=== PATIENT | male | born 1950 | race Caucasian/White ===

== ENCOUNTER 2017-09-29 06:16 | Day surgery (SDC) | payer MEDICARE, BC ==
[2017-09-28 14:20] LABS: BASOPHILS % (AUTO) 0.2 % (0-1); EOSINOPHILS # (AUTO) 0.2 X10'3 (0-0.9); EOSINOPHILS % (AUTO) 1.6 % (0-6); HEMATOCRIT 44.9 % (42.0-52.0); HEMOGLOBIN 15.6 g/dl (14.0-17.9); LYMPHOCYTES # (AUTO) 0.9 X10'3 (1.1-4.8); LYMPHOCYTES % (AUTO) 9.2 % (21-51); MEAN CORPUSCULAR HEMOGLOBIN 31.4 PG (27.0-31.0); MEAN CORPUSCULAR HGB CONC 34.8 % (33.0-36.5); MEAN CORPUSCULAR VOLUME 90.3 FL (78-98); MEAN PLATELET VOLUME 8.6 FL (7.4-10.4); MONOCYTES # (AUTO) 0.1 X10'3 (0-0.9); MONOCYTES % (AUTO) 0.9 % (2-12); NEUTROPHILS # (AUTO) 8.5 X10'3 (1.8-7.7); NEUTROPHILS % (AUTO) 88.1 % (42-75); PLATELET COUNT 164 X10'3 (140-440); RED BLOOD COUNT 4.97 X10'6 (4.70-6.10); RED CELL DISTRIBUTION WIDTH 13.6 % (11.5-14.5); WHITE BLOOD COUNT 9.7 X10'3 (4.5-11.0)
[2017-09-28 14:32] LABS: PARTIAL THROMBOPLASTIN TIME 26 SECONDS (22-32); PROTHROMBIN TIME 10.5 SECONDS (9.0-12.0)
[2017-09-28 14:44] LABS: ALANINE AMINOTRANSFERASE 44 U/L (12-78); ALBUMIN 4.2 G/DL (3.4-5.0); ALBUMIN/GLOBULIN RATIO 1.1 (1.1-1.5); ALKALINE PHOSPHATASE 82 IU/L (46-116); ANION GAP 11 (8-16); ASPARTATE AMINO TRANSFERASE 27 U/L (10-37); BILIRUBIN,TOTAL 1.1 MG/DL (0.1-1.0); BLOOD UREA NITROGEN 19 MG/DL (7-18); BUN/CREATININE RATIO 17.8 (5.4-32.0); CALCIUM 9.3 MG/DL (8.5-10.1); CHLORIDE 103 MMOL/L (99-107); CREATININE 1.07 MG/DL (0.60-1.10); GLUCOSE 125 MG/DL (70-104); POTASSIUM 4.3 MMOL/L (3.5-5.1); SODIUM 140 MMOL/L (135-145); TOTAL CARBON DIOXIDE 26.2 MMOL/L (24-32); TOTAL PROTEIN 8.1 G/DL (6.4-8.2); eGFR 69 ML/MIN
[~2017-09-29] VITALS: Ht 175.3 cm; Wt 71.5 kg
[2017-09-29] VITALS (11 sets, daily range): BP systolic 103–134; BP diastolic 57–74
[2017-09-29] MEDS ORDERED: nitroGLYCERIN 0.4mg SUBLingual tab SL PRN (06:55)
[2017-09-29] MEDS ORDERED: normal saline 1000ml 1,000 ML IV SCH (07:05)
[2017-09-29] MEDS ORDERED: LORazepam 0.5 MG tablet PO PRN (07:05)
[2017-09-29] MEDS ORDERED: methylPREDNISolone sod succ 125mg/2ml vial IV ONE (07:05)
[2017-09-29] MEDS ORDERED: diphenhydrAMINE 25mg capsule PO PRN (07:05)
[2017-09-29] MEDS ORDERED: dextrose 50%-water 50ml dispensing syringe IV PRN ×2 (07:05)
[2017-09-29] MEDS ORDERED: insulin Lispro (HumaLOG) vial - multi-dose SQ SCH (07:05)
[2017-09-29] MEDS ORDERED: MESSAGE TO PHARMACY PO ONE (07:05)
[2017-09-29] MEDS ORDERED: glucagon, human recombinant 1mg kit SUBCUT PRN (07:05)
[2017-09-29] MEDS ORDERED: dextrose ORAL solution 15 GM/59 ML bottle PO PRN ×2 (07:05)
[2017-09-29] MEDS ORDERED: SOTA80TA69 PO (08:12)
[2017-09-29] MEDS ORDERED: LEVO100T78 PO (08:12)
[2017-09-29] MEDS ORDERED: EZET10TA13 PO (08:12)
[2017-09-29] MEDS ORDERED: PRAV40TA3 PO (08:12)
[2017-09-29] MEDS ORDERED: PSYL660P17 PO (08:12)
[2017-09-29] MEDS ORDERED: CLOP75TA15 PO (08:12)
[2017-09-29] MEDS ORDERED: DEXL60CA3 PO (08:12)
[2017-09-29] MEDS ORDERED: fentaNYL/PF 50MCG/1 ML 2ML syringe ONE (09:03)
[2017-09-29] MEDS ORDERED: midazolam 2 mg/2 ml injection ONE (09:03)
[2017-09-29] MEDS ORDERED: iohexol 350 MG/ML 50ML vial IV ONE (09:03)
[2017-09-29] MEDS ORDERED: LIDOcaine 1%/PF (10mg/ml) 5ml vial ONE (09:03)
[2017-09-29] MEDS ORDERED: iohexol 350MG/ML 100ml bottle IV ONE (09:04)
[2017-09-29] MEDS ORDERED: BUPIVAcaine 0.5% inj/PF 30 ml vial IJ ONE (09:40)
[2017-09-29] MEDS ORDERED: proCHLORperazine 10 MG/2 ml inj IV PRN (10:35)
[2017-09-29] MEDS ORDERED: HYDROcodone/acetaminophen 5mg/325mg tablet PO PRN (10:35)
[2017-09-29] MEDS ORDERED: ondansetron/PF 4mg/2ml inj IV PRN (10:35)
[2017-09-29] MEDS ORDERED: OXAZEpam 15mg capsule PO PRN (10:35)
[2017-09-29] MEDS ORDERED: HYDROcodone/acetaminophen 10/325mg tab PO PRN (10:35)
[2017-09-29] MEDS ORDERED: acetaminophen 325mg tablet PO PRN (10:35)
[2017-09-29] MEDS ORDERED: insulin glargine (Lantus) pen - multi-dose SQ SCH (21:00)
== END 2017-09-29 16:20 | disposition home or self-care (01) ==
LOC: SSTAY O 06:16
PROVIDERS: ATTEND Internal Medicine Cardiovascular Disease
DX: I25.118 Atherosclerotic heart disease of native coronary artery with other forms of angina pectoris (principal); M47.817 Spondylosis without myelopathy or radiculopathy, lumbosacral region; E78.5 Hyperlipidemia, unspecified; I87.1 Compression of vein; I50.9 Heart failure, unspecified; Z95.1 Presence of aortocoronary bypass graft; Z95.5 Presence of coronary angioplasty implant and graft; Z88.4 Allergy status to anesthetic agent; Z91.041 Radiographic dye allergy status; Z88.6 Allergy status to analgesic agent; Z88.2 Allergy status to sulfonamides; Z72.89 Other problems related to lifestyle; Z98.890 Other specified postprocedural states; Z79.899 Other long term (current) drug therapy
CPT/HCPCS: 36415; 71046; 80053; 82948; 85025; 85610; 85730; 93459; 99152; 99153; A6257; C1760; C1769; J1644; J2001; J2250; J2930; J3010; J7030; Q0163; Q9967; A4620; J1815; J3490